=== PATIENT | female | born 1965 | race Caucasian/White ===

== ENCOUNTER 2020-11-08 08:06 | Emergency (ER) | payer OTHER ==
[~2020-11-08] VITALS: Ht 162.6 cm; Wt 74.8 kg
[2020-11-08] MEDS ORDERED: LOSARTAN POTASS50 MG PO (08:13)
[2020-11-08] MEDS ORDERED: ZOLOFT50 M1 PO (08:13)
[2020-11-08 08:51] LABS: ABSOLUTE EOSINOPHILS 0.2 thou/uL (0.0-0.7); ABSOLUTE LYMPHOCYTES 1.5 thou/uL (0.8-5.3); ABSOLUTE MONOCYTES 0.3 thou/uL (0.0-1.2); ABSOLUTE NEUTROPHILS 3.6 thou/uL (1.6-8.1); BASOPHILS 0.6 %; EOSINOPHILS 2.9 %; HEMATOCRIT 36.4 % (37.0-47.0); HEMOGLOBIN 12.5 gm/dL (12.0-15.0); LYMPHOCYTES 26.7 %; MCH 30.5 pg (26.0-34.0); MCHC 34.2 g/dL (28.0-37.0); MCV 89.2 fL (80.0-100.0); MONOCYTES 5.5 %; MPV 6.8 fl. (7.2-11.1); NUCLEATED RBCS 0 /100WBC; PLATELET COUNT* 276 thou/uL (150-400); POLYS 64.3 %; RBC 4.09 mil/uL (4.20-5.00); RDW-CV 13.5 % (10.5-14.5); WBC 5.5 thou/uL (4.0-11.0)
[2020-11-08 08:55] LABS: CALCIUM 8.3 mg/dL (8.5-10.1); CREATININE 0.6 mg/dL (0.6-1.3); POTASSIUM 3.2 mmol/L (3.5-5.1)
[2020-11-08 08:59] LABS: ALBUMIN 3.7 g/dL (3.4-5.0); TOTAL BILIRUBIN 0.2 mg/dL (<0.1-1.0)
[2020-11-08 10:30] VITALS: BP 156/85
--- NOTE | 2020-11-08 12:04 | EKG ---
[place] [address] ELECTROCARDIOGRAM REPORT Name: WINSTON MCHUGH Room: [facility]#: [id number] Admission: 11/08/20 Attend Phys: Discharge: 11/08/20 Date of : 65 Date of Service: 11/08/20826 Report #: [id number] THIS REPORT FOR: //name// [facility] ED Test Date: 2020-11-08 Test Time: 08:27:39 Pat Name: WINSTON MCHUGH Department: Room: Gender: [employer] Practitioner: 14 : 1965 Requested By: Rajinder Pierre Order Number: [id number] MD: Quincy Romero Measurements Intervals [place] Rate: 70 P: 45 [place]: 144 QRS: -9 QRSD: 97 T: 32 QT: 439 QTc: 474 Interpretive Statements Sinus rhythm Possible left atrial enlargement Consider anterior infarct No previous ECG available for comparison Electronically Signed On 11-08-2020 12:04:46 CDT by Quincy Romero [email or web address] <ELECTRONICALLY SIGNED> By: Quincy Romero MD, [facility] 11/08/20 1204 6 6 Quincy Romero MD, FAC /EPI
== END 2020-11-08 10:30 | disposition home or self-care (01) ==
LOC: M.ERS 08:06
PROVIDERS: Emergency Medicine Emergency Medical Services
DX: I10 Essential (primary) hypertension (principal); Z88.5 Allergy status to narcotic agent